=== PATIENT | female | born 1985 | race African-American/Black ===

== ENCOUNTER 2017-03-16 22:31 | Inpatient (IN) | payer MEDICAID, OTHER ==
[~2017-03-16] VITALS: Ht 162.6 cm; Wt 72.1 kg
[~2017-03-16 22:31] MED LIST: DIVA500T35 PO; RISP2 PO
[2017-03-16 22:52] LABS: GLUCOSE,POINT OF CARE 69 MG/DL (70-110)
[2017-03-16 23:06] LABS: BASOPHILS # (AUTO) 0.02 K/uL (0.00-0.20); BASOPHILS % (AUTO) 0.3 % (0.0-2.0); EOSINOPHILS # (AUTO) 0.14 K/uL (0.00-0.70); HEMATOCRIT 37.6 % (36-46); LYMPHOCYTES # (AUTO) 2.4 K/uL (1.0-4.8); LYMPHOCYTES % (AUTO) 41.8 % (22.0-44.0); MEAN CORPUSCULAR HEMOGLOBIN 27.5 pg (26.0-34.0); MEAN CORPUSCULAR HGB CONC 31.8 G/dL (31.0-37.0); MEAN CORPUSCULAR VOLUME 86 fL (80-100); MONOCYTES # (AUTO) 0.8 K/uL (0.1-1.0); NEUTROPHILS # (AUTO) 2.5 K/uL (1.8-7.7); NEUTROPHILS % (AUTO) 42.4 % (40.0-70.0); PLATELET COUNT (AUTO) 198 K/uL (150-450); RED BLOOD CELL COUNT(AUTO) 4.35 MIL/uL (4.00-5.20); RED CELL DISTRIBUTION WIDTH 13.8 % (11.5-14.5); WHITE BLOOD COUNT (AUTO) 5.8 K/uL (4.5-11.0)
[2017-03-16 23:07] LABS: ANION GAP 17 mmol/L (8-16); CALCIUM, TOTAL 8.9 mg/dL (8.8-10.5); CARBON DIOXIDE 21 mmol/L (22-29); CHLORIDE 101 mmol/L (98-107); CREATININE 0.89 mg/dL (0.60-1.30); GLOMERULAR FILTR. RATE CALC > 60 mL/min (>60); POTASSIUM 3.3 mmol/L (3.5-5.1); SODIUM SERUM 139 mmol/L (136-145); UREA NITROGEN, BLOOD 6 mg/dL (7-18)
[2017-03-16 23:14] LABS: ALANINE AMINOTRANSFERASE 19 U/L (12-78); ALBUMIN 3.9 g/dL (3.4-5.0); ASPARTATE AMINOTRANSFERASE 18 U/L (15-37); BILIRUBIN,TOTAL 0.5 mg/dL (0.1-1.0); TOTAL PROTEIN, SERUM 7.4 g/dL (6.4-8.2)
[2017-03-16 23:23] LABS: APPEARANCE,URINE CLEAR (CLEAR); GLUCOSE, URINE (UA) NEGATIVE (NEGATIVE); KETONES,URINE >=80 mg/dL (NEGATIVE); LEUKOCYTE ESTERASE ,URINE NEGATIVE (NEGATIVE); OCCULT BLOOD,URINE NEGATIVE (NEGATIVE); PROTEIN,URINE POS 1+ (NEGATIVE)
[2017-03-16 23:29] LABS: ACETAMINOPHEN < 2 mcg/mL (10-30); SALICYLATE < 2.8 mg/dL (2.8-20.0); VALPROIC ACID < 3 mcg/mL (50-100)
[2017-03-16 23:54] LABS: RBC,URINE 0-2 /HPF (0-2); SQUAMOUS EPITHELIAL CELL,UR Moderate /LPF (None Seen)
[2017-03-17] MEDS ORDERED: ZOLPIDEM TARTRATE 10 MG TABLET PO PRN (02:30)
[2017-03-17] MEDS ORDERED: LORazepam 2 MG TABLET PO PRN (02:30)
[2017-03-17] MEDS ORDERED: HALOPERIDOL 5 MG TABLET PO PRN (02:30)
[2017-03-17 04:35] VITALS: BP 141/84
[2017-03-17 08:21] LABS: CHOL/HDL RATIO 2.7 (3.9-5.7)
[2017-03-17 10:45] VITALS: BP 109/74
[2017-03-17 16:49] VITALS: BP 117/75
[2017-03-17] MEDS: RisperiDONE 2 MG TABLET PO SCH (18:52)
[2017-03-17] MEDS: DIVALPROEX SODIUM 500 MG DR TABLET PO SCH (18:53)
[2017-03-17] MEDS ORDERED: IBUPROFEN 400 MG TABLET PO PRN (19:45)
[2017-03-17] MEDS ORDERED: ACETAMINOPHEN 325 MG TABLET PO PRN (19:45)
[2017-03-17] MEDS ORDERED: POTASSIUM CHLORIDE 20 MEQ ER TABLET PO ONE (19:45)
[2017-03-18 07:41] LABS: HEMOGLOBIN A1C 5.6 % (4.5-6.2)
[2017-03-18 08:11] VITALS: BP 115/67
[2017-03-18 09:04] LABS: THYROID STIMULATING HORMONE 0.96 uIU/mL (0.36-3.74)
[2017-03-18] MEDS: DIVALPROEX SODIUM 500 MG DR TABLET PO SCH ×2 (10:30→16:32)
[2017-03-18] MEDS: RisperiDONE 2 MG TABLET PO SCH ×2 (10:30→16:31)
[2017-03-18 18:20] VITALS: BP 116/72
[2017-03-19 08:03] VITALS: BP 116/72
[2017-03-19] MEDS: RisperiDONE 2 MG TABLET PO SCH ×2 (09:03→17:13)
[2017-03-19] MEDS: DIVALPROEX SODIUM 500 MG DR TABLET PO SCH ×2 (09:03→17:13)
[2017-03-19 19:28] VITALS: BP 115/75
[2017-03-20 08:04] VITALS: BP 117/71
[2017-03-20] MEDS: DIVALPROEX SODIUM 500 MG DR TABLET PO SCH (08:23)
[2017-03-20] MEDS: RisperiDONE 2 MG TABLET PO SCH (08:23)
== END 2017-03-20 13:30 | disposition home or self-care (01) | DRG 750 ==
LOC: EMS 22:32 → 3EI 03-17 03:44
PROVIDERS: ADMIT Psychiatry & Neurology Psychiatry; ATTEND Psychiatry & Neurology Psychiatry
DX: F20.0 Paranoid schizophrenia (principal); E87.6 Hypokalemia; F17.200 Nicotine dependence, unspecified, uncomplicated
CPT/HCPCS: 70450; 82962; 83036; 84443; 99285; G0480; G0481